=== PATIENT | male | born 1975 | race African-American/Black ===

== ENCOUNTER 2023-09-17 12:09 | Inpatient (IN) | payer OTHER, SELFPAY ==
[2023-09-17 13:02] LABS: #Monocytes 0.4 thou/uL (0.11-0.59); #Neutrophils 4.5 thou/uL (1.40-6.50); %Basophils 0.5 % (0.0-1.0); %Eosinophils 0.5 % (0.0-10.0); %Lymphocytes 16.6 % (21.0-51.0); %Monocytes 6.4 % (0.0-10.0); %Neutrophils 75.8 % (42.0-75.0); Hemoglobin 12.6 g/dL (14.0-18.0); Mean Corpuscular HGB CONC 37.1 g/dL (32.0-36.0); Mean Corpuscular Hemoglobin 35.1 pg (27.0-31.0); Mean Corpuscular Volume 94.7 fl (78.0-98.0); Mean Platelet Volume 8.9 fL (7.4-10.4); Platelet Count 238 10x3/uL (130-400); RBC Distribution Width 13.9 % (11.5-14.5); Red Blood Cell (RBC) Count 3.59 mill/uL (4.70-6.10); White Blood Cell (WBC) Count 5.9 10x3/uL (4.8-10.8)
[2023-09-17 13:30] LABS: ALT (SGPT) 14 U/L (8-55); AST (SGOT) 24 U/L (5-34); Albumin 4.2 g/dL (3.5-5.0); Alkaline Phosphatase 126 U/L (40-110); Anion Gap 15 mmol/L (10-20); BUN (Urea Nitrogen) 10 mg/dL (8.9-20.6); Bilirubin, Total 1.7 mg/dL (0.2-1.2); Calc. Creatinine Clearance 0 mL/min (70-130); Calcium 9.4 mg/dL (7.8-10.44); Carbon Dioxide 23 mmol/L (22-29); Chloride 103 mmol/L (98-107); Estimated GFR 78; Globulin 3.4 g/dL (2.4-3.5); Glucose 123 mg/dL (70-105); Potassium 3.5 mmol/L (3.5-5.1); Protein, Total 7.6 g/dL (6.0-8.3); Sodium 137 mmol/L (136-145)
[2023-09-17 13:35] LABS: Troponin I 0.166 ng/mL (< 0.028)
[2023-09-17] MEDS ORDERED: Aspirin Chewable 81 MG TAB ONE (14:35)
[2023-09-17] MEDS ORDERED: Nitroglycerin 2% Ointment 1 INCH/1 GM Packet ONE (15:03)
[2023-09-17] MEDS ORDERED: Ondansetron ODT 4 MG TAB PO PRN (15:12)
[2023-09-17] MEDS ORDERED: Lorazepam 1 MG TAB PO PRN (15:40)
[2023-09-17] MEDS ORDERED: Electrolyte Replacement Protocol FS SCH (15:45)
[2023-09-17 16:02] LABS: INR-International Normal Ratio 1.1; PTT 27.8 sec (22.9-36.1); Prothrombin Time 14.5 sec (12.0-14.7)
[2023-09-17 17:30] LABS: Magnesium 1.7 mg/dL (1.6-2.6); Phosphorus 1.9 mg/dL (2.3-4.7)
[2023-09-17 17:35] LABS: Troponin I 0.149 ng/mL (< 0.028)
[2023-09-17] MEDS ORDERED: PHOS-NAK 1 PKT PACK PO SCH (17:45)
[2023-09-17 18:46] VITALS: BMI 24.6
[2023-09-17] MEDS ORDERED: hydrALAZINE 20 MG/ML VIAL SLOW IVP SCH (19:15)
[2023-09-17] MEDS: Metoprolol Tartrate 25 MG TAB PO SCH (19:53)
[2023-09-17 23:29] LABS: Troponin I 0.146 ng/mL (< 0.028)
[2023-09-18] MEDS ORDERED: Magnesium 2 GM/50 ML(in water) 2 GM in Premix 1 BAG IVPB SCH (00:30)
[2023-09-18] MEDS: PHOS-NAK 1 PKT PACK PO SCH ×2 (00:42→04:30)
[2023-09-18 03:53] LABS: Amphetamine Detected (NotDetected); Barbiturates Screen Not Detected (NotDetected); Benzodiazepine Screen Not Detected (NotDetected); Cocaine Metabolite Screen Detected (NotDetected); Methadone Not Detected (NotDetected); Methamphetamine Detected (NotDetected); Opiate Screen Not Detected (NotDetected); Oxycodone Screen Not Detected (NotDetected); Phencyclidine (PCP) Not Detected (NotDetected); THC/Cannabinoid Screen Detected (NotDetected); Tricyclic Screen Not Detected (NotDetected)
[2023-09-18 05:57] LABS: Anion Gap 12 mmol/L (10-20); BUN (Urea Nitrogen) 9 mg/dL (8.9-20.6); Calc. Creatinine Clearance 119 mL/min (70-130); Calcium 8.5 mg/dL (7.8-10.44); Carbon Dioxide 24 mmol/L (22-29); Chloride 105 mmol/L (98-107); Estimated GFR 106; Glucose 106 mg/dL (70-105); Sodium 138 mmol/L (136-145)
[2023-09-18] MEDS ORDERED: Potassium Chloride 20 MEQ TAB PO SCH ×2 (08:00→22:00)
[2023-09-18] MEDS ORDERED: Amlodipine 5 MG TAB PO SCH (10:15)
[2023-09-18] MEDS ORDERED: Losartan 25 MG TAB PO SCH (10:15)
[2023-09-18] MEDS: Multivit, Therapeutic 1 TAB PO SCH (10:37)
[2023-09-18] MEDS: Aspirin Chewable 81 MG TAB PO SCH (10:38)
[2023-09-18] MEDS: Thiamine 100 MG TAB PO SCH (10:38)
[2023-09-18] MEDS: Folic Acid 1 MG TAB PO SCH (10:38)
[2023-09-18] MEDS ORDERED: Lorazepam 1 MG TAB PO PRN (15:40)
[2023-09-18] MEDS: Acetaminophen 325 MG TAB PO PRN ×2 (16:34→22:06)
[2023-09-18] MEDS: Metoprolol Tartrate 25 MG TAB PO SCH (16:49)
[2023-09-18 18:59] LABS: Potassium 3.4 mmol/L (3.5-5.1)
[2023-09-18] MEDS: Losartan 25 MG TAB PO SCH (20:05)
[2023-09-19 04:41] LABS: #Eosinphils 0.1 thou/uL (0.0-0.7); #Monocytes 0.4 thou/uL (0.11-0.59); #Neutrophils 2.1 thou/uL (1.40-6.50); %Basophils 0.7 % (0.0-1.0); %Eosinophils 1.1 % (0.0-10.0); %Monocytes 9.3 % (0.0-10.0); %Neutrophils 47.7 % (42.0-75.0); Hematocrit 32.1 % (42.0-52.0); Hemoglobin 11.2 g/dL (14.0-18.0); Mean Corpuscular HGB CONC 34.9 g/dL (32.0-36.0); Mean Corpuscular Hemoglobin 34.8 pg (27.0-31.0); Mean Corpuscular Volume 99.7 fl (78.0-98.0); Mean Platelet Volume 9.8 fL (7.4-10.4); Platelet Count 221 10x3/uL (130-400); RBC Distribution Width 14.7 % (11.5-14.5); Red Blood Cell (RBC) Count 3.22 mill/uL (4.70-6.10); White Blood Cell (WBC) Count 4.4 10x3/uL (4.8-10.8)
[2023-09-19 05:12] LABS: Anion Gap 13 mmol/L (10-20); BUN (Urea Nitrogen) 12 mg/dL (8.9-20.6); Calc. Creatinine Clearance 95 mL/min (70-130); Calcium 8.6 mg/dL (7.8-10.44); Carbon Dioxide 24 mmol/L (22-29); Chloride 107 mmol/L (98-107); Estimated GFR 86; Glucose 106 mg/dL (70-105); Magnesium 1.7 mg/dL (1.6-2.6); Phosphorus 3.3 mg/dL (2.3-4.7); Potassium 3.6 mmol/L (3.5-5.1); Sodium 140 mmol/L (136-145)
[2023-09-19] MEDS ORDERED: Magnesium 2 GM/50 ML(in water) 2 GM in Premix 1 BAG IVPB SCH (08:00)
[2023-09-19] MEDS ORDERED: hydrALAZINE 25 MG TAB PO SCH ×2 (09:00→15:00)
[2023-09-19] MEDS ORDERED: Amlodipine 5 MG TAB PO SCH (09:00)
[2023-09-19] MEDS ORDERED: Losartan 25 MG TAB PO SCH (09:00)
[2023-09-19] MEDS: Thiamine 100 MG TAB PO SCH (09:09)
[2023-09-19] MEDS: Folic Acid 1 MG TAB PO SCH (09:10)
[2023-09-19] MEDS: Multivit, Therapeutic 1 TAB PO SCH (09:10)
[2023-09-19] MEDS: Losartan 25 MG TAB PO SCH ×2 (09:10→19:53)
[2023-09-19] MEDS: Aspirin Chewable 81 MG TAB PO SCH (09:10)
[2023-09-19] MEDS: Amlodipine 10 MG TAB PO SCH (09:13)
[2023-09-19] MEDS ORDERED: Lorazepam 1 MG TAB PO PRN (15:40)
[2023-09-19] MEDS: hydrALAZINE 20 MG/ML VIAL SLOW IVP PRN ×2 (18:39→23:47)
[2023-09-19] MEDS: hydrALAZINE 25 MG TAB PO SCH (19:53)
[2023-09-19] MEDS: Acetaminophen 325 MG TAB PO PRN ×2 (19:53→23:47)
[2023-09-20 04:45] LABS: #Eosinphils 0.1 thou/uL (0.0-0.7); #Monocytes 0.4 thou/uL (0.11-0.59); #Neutrophils 2.1 thou/uL (1.40-6.50); %Basophils 0.7 % (0.0-1.0); %Eosinophils 1.8 % (0.0-10.0); %Lymphocytes 38.9 % (21.0-51.0); %Monocytes 9.7 % (0.0-10.0); %Neutrophils 48.7 % (42.0-75.0); Hematocrit 34.5 % (42.0-52.0); Hemoglobin 12.2 g/dL (14.0-18.0); Mean Corpuscular HGB CONC 35.4 g/dL (32.0-36.0); Mean Corpuscular Volume 98.9 fl (78.0-98.0); Mean Platelet Volume 9.5 fL (7.4-10.4); Platelet Count 219 10x3/uL (130-400); RBC Distribution Width 14.9 % (11.5-14.5); Red Blood Cell (RBC) Count 3.49 mill/uL (4.70-6.10); White Blood Cell (WBC) Count 4.4 10x3/uL (4.8-10.8)
[2023-09-20 05:10] LABS: Anion Gap 14 mmol/L (10-20); BUN (Urea Nitrogen) 12 mg/dL (8.9-20.6); Calc. Creatinine Clearance 115 mL/min (70-130); Calcium 8.7 mg/dL (7.8-10.44); Carbon Dioxide 20 mmol/L (22-29); Chloride 106 mmol/L (98-107); Cholesterol 191 mg/dl (< 200 Desired); Estimated GFR 105; Glucose 115 mg/dL (70-105); HDL Cholesterol 32 mg/dL (>60 Neg Risk); Magnesium 1.8 mg/dL (1.6-2.6); Potassium 3.3 mmol/L (3.5-5.1); Sodium 137 mmol/L (136-145); Triglycerides 471 mg/dL (Less than 150)
[2023-09-20] MEDS ORDERED: Magnesium 2 GM/50 ML(in water) 2 GM in Premix 1 BAG IVPB SCH (08:00)
[2023-09-20] MEDS ORDERED: Carvedilol 6.25 MG TAB PO SCH (08:00)
[2023-09-20] MEDS ORDERED: Potassium Chloride 20 MEQ TAB PO SCH (08:00)
[2023-09-20] MEDS: Acetaminophen 325 MG TAB PO PRN ×2 (08:49→19:46)
[2023-09-20] MEDS: Multivit, Therapeutic 1 TAB PO SCH (08:50)
[2023-09-20] MEDS: Thiamine 100 MG TAB PO SCH (08:51)
[2023-09-20] MEDS: Carvedilol 6.25 MG TAB PO SCH ×2 (08:51→18:26)
[2023-09-20] MEDS: hydrALAZINE 25 MG TAB PO SCH ×3 (08:51→20:47)
[2023-09-20] MEDS: Losartan 25 MG TAB PO SCH ×2 (08:51→20:48)
[2023-09-20] MEDS: Amlodipine 10 MG TAB PO SCH (08:52)
[2023-09-20] MEDS: Folic Acid 1 MG TAB PO SCH (08:52)
[2023-09-20] MEDS: Aspirin Chewable 81 MG TAB PO SCH (08:53)
[2023-09-20] MEDS ORDERED: FLU VACC QS2023-24(6MOS UP)/PF 60 MCG/0.5 ML SYRINGE IM ONE (09:00)
[2023-09-20] MEDS ORDERED: Lorazepam 0.5 MG TAB PO PRN (15:40)
[2023-09-21 04:18] LABS: #Eosinphils 0.1 thou/uL (0.0-0.7); #Monocytes 0.5 thou/uL (0.11-0.59); #Neutrophils 1.9 thou/uL (1.40-6.50); %Basophils 0.5 % (0.0-1.0); %Lymphocytes 37.1 % (21.0-51.0); %Monocytes 12.3 % (0.0-10.0); %Neutrophils 47.8 % (42.0-75.0); Hematocrit 34.7 % (42.0-52.0); Mean Corpuscular HGB CONC 34.6 g/dL (32.0-36.0); Mean Corpuscular Hemoglobin 34.8 pg (27.0-31.0); Mean Corpuscular Volume 100.6 fl (78.0-98.0); Mean Platelet Volume 9.4 fL (7.4-10.4); Platelet Count 227 10x3/uL (130-400); RBC Distribution Width 15.3 % (11.5-14.5); Red Blood Cell (RBC) Count 3.45 mill/uL (4.70-6.10); White Blood Cell (WBC) Count 3.9 10x3/uL (4.8-10.8)
[2023-09-21 04:50] LABS: Anion Gap 12 mmol/L (10-20); BUN (Urea Nitrogen) 12 mg/dL (8.9-20.6); Calc. Creatinine Clearance 119 mL/min (70-130); Calcium 8.8 mg/dL (7.8-10.44); Carbon Dioxide 21 mmol/L (22-29); Chloride 108 mmol/L (98-107); Estimated GFR 106; Glucose 106 mg/dL (70-105); Magnesium 1.8 mg/dL (1.6-2.6); Potassium 3.6 mmol/L (3.5-5.1); Sodium 137 mmol/L (136-145)
[2023-09-21] MEDS: Multivit, Therapeutic 1 TAB PO SCH (07:58)
[2023-09-21] MEDS: Aspirin Chewable 81 MG TAB PO SCH (07:58)
[2023-09-21] MEDS: Thiamine 100 MG TAB PO SCH (07:59)
[2023-09-21] MEDS: Losartan 25 MG TAB PO SCH (07:59)
[2023-09-21] MEDS: Amlodipine 10 MG TAB PO SCH (07:59)
[2023-09-21] MEDS: Folic Acid 1 MG TAB PO SCH (07:59)
[2023-09-21] MEDS: hydrALAZINE 25 MG TAB PO SCH ×2 (07:59→15:43)
[2023-09-21] MEDS ORDERED: Carvedilol 25 MG TAB PO SCH ×2 (08:00→17:00)
[2023-09-21] MEDS ORDERED: Magnesium 2 GM/50 ML(in water) 2 GM in Premix 1 BAG IVPB SCH (08:00)
[2023-09-21] MEDS: Acetaminophen 325 MG TAB PO PRN ×2 (08:03→12:27)
[2023-09-21 11:44] VITALS: BP 123/77; TEMP 97.7
[2023-09-21] MEDS ORDERED: Carvedilol 6.25 MG TAB PO SCH (17:00)
== END 2023-09-21 16:21 | disposition home or self-care (01) | DRG 897 ==
LOC: EEVIPCON 12:09 → ERS 12:09 → SUATTDRO 12:09 → EEVIPCON 14:47 → 2SW 14:47 → OBSVTOIN 09-19 08:39
PROVIDERS: ADMIT Internal Medicine; ATTEND Family Medicine
DX: F19.10 Other psychoactive substance abuse, uncomplicated (principal); I10 Essential (primary) hypertension; F15.10 Other stimulant abuse, uncomplicated; F10.10 Alcohol abuse, uncomplicated; Z71.41 Alcohol abuse counseling and surveillance of alcoholic; Z79.899 Other long term (current) drug therapy
CPT/HCPCS: 36415; 36416; 71045; 78452; 80048; 80053; 80061; 80306; 83735; 84100; 84484; 85025; 85610; 85730; 90471; 90686; 93005; 93010; 93017; 93306; 94760; 96372; 96374; 96375; A9502; G0008; G0378; J0360; J1650; J3475

== ENCOUNTER 2023-09-22 16:12 | Emergency (ER) | payer SELFPAY ==
[2023-09-22 17:23] LABS: #Monocytes 0.6 thou/uL (0.11-0.59); #Neutrophils 3.8 thou/uL (1.40-6.50); %Basophils 0.4 % (0.0-1.0); %Eosinophils 0.5 % (0.0-10.0); %Lymphocytes 19.7 % (21.0-51.0); %Monocytes 10.4 % (0.0-10.0); %Neutrophils 68.6 % (42.0-75.0); Hematocrit 35.2 % (42.0-52.0); Hemoglobin 12.6 g/dL (14.0-18.0); Mean Corpuscular HGB CONC 35.8 g/dL (32.0-36.0); Mean Corpuscular Volume 97.8 fl (78.0-98.0); Mean Platelet Volume 9.3 fL (7.4-10.4); Platelet Count 248 10x3/uL (130-400); RBC Distribution Width 14.8 % (11.5-14.5); White Blood Cell (WBC) Count 5.5 10x3/uL (4.8-10.8)
[2023-09-22 17:55] LABS: Troponin I 0.104 ng/mL (< 0.028)
[2023-09-22 18:20] LABS: ALT (SGPT) 35 U/L (8-55); AST (SGOT) 47 U/L (5-34); Albumin 4.5 g/dL (3.5-5.0); Alkaline Phosphatase 110 U/L (40-110); Anion Gap 15 mmol/L (10-20); BUN (Urea Nitrogen) 15 mg/dL (8.9-20.6); Bilirubin, Total 0.8 mg/dL (0.2-1.2); Calc. Creatinine Clearance 0 mL/min (70-130); Calcium 9.7 mg/dL (7.8-10.44); Carbon Dioxide 18 mmol/L (22-29); Chloride 108 mmol/L (98-107); Estimated GFR 66; Globulin 3.5 g/dL (2.4-3.5); Glucose 115 mg/dL (70-105); Potassium 3.4 mmol/L (3.5-5.1); Sodium 138 mmol/L (136-145)
== END 2023-09-22 18:25 ==
LOC: ERS 16:12
DX: R07.9 Chest pain, unspecified (principal); K08.89 Other specified disorders of teeth and supporting structures; I10 Essential (primary) hypertension
CPT/HCPCS: 70486; 80053; 84484; 85025; 93005